=== PATIENT | female | born 1970 | race Caucasian/White ===

== ENCOUNTER 2016-12-17 12:02 | Inpatient (IN) | payer BC ==
[~2016-12-17] VITALS: Ht 170.2 cm; Wt 98.0 kg
--- NOTE | ~2016-12-17 | HP ---
ADMIT: 12/17/2016 RM/LOC: 619 [facility] MR#: [id number] [address] [address] DB [place] [address] [place] [id number] History and Physical SEX: F AGE: 46 : 1970 DATE OF SERVICE: 12/17/2016 CHIEF COMPLAINT: Abdominal pain. HISTORY OF PRESENT ILLNESS: Db is a 46-year-old patient, normally seen by Irene Quintanilla APRN at the [facility]. She presented to the [facility] Emergency Department today with a little over 24 hours of colicky and sharp epigastric abdominal pain starting at about 3 o'clock in the afternoon on 12/16/2016. She denies any known inciting event. She has had one episode of vomiting in the overnight period, and one episode of watery diarrhea. She denies any fever. She did not have any blood in her stools. She is currently on her menstrual cycle. She denies any dysuria. She has generally had a sense of anorexia and just not feeling very hungry. PAST MEDICAL HISTORY: Remarkable for; 1. Seasonal allergies. 2. Hypertension. 3. Gastroesophageal reflux disease. 4. Anxiety. 5. Obesity. MEDICATIONS: Her outpatient medications include; 1. Lisinopril 10 mg daily. 2. Omeprazole 20 mg daily. 3. Xanax 1 mg b.i.d. 4. Loratadine 10 mg daily. 5. Benadryl 25 mg at bedtime as needed to help her sleep. ALLERGIES: NO KNOWN MEDICAL ALLERGIES. SOCIAL HISTORY: She is . Denies any tobacco or drug use. She does admit 2 to 3 glasses of wine per day. FAMILY HISTORY: Noncontributory. REVIEW OF SYSTEMS: As per HPI. All others were reviewed and negative. PHYSICAL EXAMINATION: VITAL SIGNS: Blood pressure is 129/86, pulse 88, respirations 16, temp 98.5, O2 saturation is 98% on room air. GENERAL: She is awake, alert, no acute distress. Comfortable in hospital bed. HEENT: Normocephalic and atraumatic. NECK: Supple. No lymphadenopathy. No thyromegaly. HEART: Regular rate and rhythm. No murmurs, gallops, rubs. LUNGS: Clear to auscultation bilaterally. ABDOMEN: Soft. She has some mild discomfort in the epigastrium and down around the left lower quadrant region, but otherwise the remainder of her exam is fairly benign. EXTREMITIES: No cyanosis, clubbing, or edema. ADMIT: 12/17/2016 RM/LOC: 619 [facility] MR#: [id number] [address] [address] [place] [address] History and Physical SEX: F AGE: 46 : 1970 LABORATORY AND X-RAY DATA: Her CBC is remarkable only for an elevated white count of 14.4. Urine preg test is negative. UA suggestive of perhaps being mildly dehydrated 1+ protein, 3+ ketones, trace blood, and 4 hyaline casts. Blood culture is pending. Lactic acid is negative. CMP is remarkable for elevated LFTs though this is not new. Her lipase is negative at 101. Electrolytes are unremarkable. CRP is 4.5, and her sedimentation rate is 20. CT of her abdomen and pelvis, shows inflammation of wall of small bowel, mucosal thickening, some inflammatory changes extending in the adjacent fat, right-sided pleural effusion, and free fluid noticed in the pelvis, and fatty infiltration of the liver. ASSESSMENT: 1. Abdominal pain. 2. Small bowel thickening on CT. 3. Vomiting and diarrhea. 4. Dehydration. 5. Regular alcohol use. 6. Elevated liver enzymes. PLAN: Plan is going to be to admit her to a med/surg bed for observation. She has been started on IV fluids. General Surgery has been consulted and at this time does not think there are any surgical issues with her abdomen. I do suspect that perhaps she may have an infectious enteritis, and stool studies have been ordered and will be obtained as soon as she has another bowel movement. Her liver enzymes, I think are due to her chronic alcohol use. She was started on Cipro and Flagyl empirically these can be discontinued once we are fairly certain that this is not a treatable infectious diarrhea. Further management will be dependent on her clinical course. Bony Maciel MD/ soraya JOB #: [id number] CC: Bony Maciel, Attending Physician Bony Maciel, Family Physician
[2016-12-20] MEDS ORDERED: CLARITIN DPS10 MG PO (06:02)
[2016-12-20] MEDS ORDERED: ZESTRIL DPS10 MG PO (06:02)
[2016-12-20] MEDS ORDERED: PRILOSEC DPS20 MG PO (06:02)
[2016-12-20] MEDS ORDERED: BENADRYL-DPS25 MG PO (06:03)
--- NOTE | 2016-12-20 07:54 | CO ---
ADMIT: 12/17/2016 RM/LOC: 619 [facility] MR#: [id number] [address] [address] DB [place] [address] [place] [address] Consultation SEX: F AGE: 46 : 1970 DATE OF CONSULTATION: 12/17/2016 ATTENDING PHYSICIAN: Bony Maciel CONSULTING PHYSICIAN: Jose Luis Peña MD HISTORY: This is a 46-year-old female, seen in surgical consultation for Dr. Maciel with complaints of abdominal pain, diarrhea, and vomiting. Db describes these onset of symptoms yesterday. She had several episodes of loose diarrhea stool today. She has not noticed any blood in that. The pain is described as crampy and intermittent. It is located through her central abdomen. She has had no significant fever at home. She came to the ER for evaluation and had a second episode of vomiting at that point. She has never previously had these symptoms. She currently is not having any of the pain. CT scan of the abdomen performed in the ER did demonstrate evidence of small bowel and inflammation consistent with enteritis. There was also free fluid. No free air or mass or other abnormality was visualized. PAST MEDICAL HISTORY: 1. Hypertension. 2. Gastroesophageal reflux disease. CURRENT MEDICATIONS: Lisinopril. SOCIAL HISTORY: She is a nonsmoker. She does drink occasional alcohol. ALLERGIES: NO KNOWN MEDICAL ALLERGIES. FAMILY HISTORY: Significant for Crohn disease in a stepsister. REVIEW OF SYSTEMS: A 10-point review of systems is performed. The gastrointestinal symptoms mentioned above are the only positives, and the remainder of the review of systems is negative. PHYSICAL EXAMINATION: GENERAL: Db is alert, oriented, and in no acute distress. VITAL SIGNS: Her admission vital signs are stable and she is afebrile. HEENT: Sclerae appear anicteric. NECK: Supple. Trachea is midline. LUNGS: Clear bilaterally. HEART: Regular rate and rhythm. ABDOMEN: Soft without significant tenderness to palpation. There is no peritoneal sign or palpable mass. NEUROLOGIC: Cranial nerves are intact and no focal neurologic peripheral deficits. EXTREMITIES: Calves are soft bilaterally. LABORATORY STUDIES: White blood cell count is 14,000. Complete metabolic panel shows only minimal elevation of AST and ALT, and the remainder appeared ADMIT: 12/17/2016 RM/LOC: 619 [facility] MR#: [id number] [address] [address] [address] [place] [place] [address] Consultation SEX: F AGE: 46 : 1970 unremarkable. Lactic acid is normal. Erythrocyte sedimentation rate is normal. CT scan is reviewed which demonstrates the above-mentioned findings of enteritis and free fluid. IMPRESSION: Small bowel inflammatory change suspicious for infectious etiology given the acute nature. PLAN: Stool cultures are pending. She is to be started on ciprofloxacin and Flagyl IV form as appropriate coverage for enteric pathogens. Currently, no surgical indication, but we will follow along for any clinical deterioration to reassess for that need. I discussed this plan as described with Db, and she is in agreement. Jose Luis Peña MD/ ardenl JOB #: [id number] CC: Bony Maciel, Attending Physician Bony Maciel, Family Physician
--- NOTE | 2016-12-23 09:21 | ER ---
ADMIT: 12/17/2016 RM/LOC: 619 [facility] MR#: [id number] [id number] [place], [place] [address] DB [place] [address] [place] [address] Emergency Room Report SEX: F AGE: 46 : 1970 DATE: 12/17/2016 ADDENDUM: A 46-year-old female, comes in complaining of severe abdominal pain that was worse last night, but is still present. It has been diffuse in nature. She has had some nausea, and vomited twice, and also had some diarrhea with this. She states she feels a little warm, but has not taken her temperature. She has no previous surgical history on her abdomen. Physical exam showed she was diffusely tender throughout her abdomen, more noticeable in the bilateral lower quadrants. Her bowel sounds were hypoactive. There was no rebound tenderness and no guarding. I checked CBC, which showed a white count of 14.4, otherwise unremarkable. Chemistries were normal other than an AST of 57, an ALT of 87. Urinalysis showed 3+ ketones, 1+ protein. Urine was negative. CT of abdomen and pelvis showed some thickened small bowel wall with significant amount of free fluid in her abdomen and a small pleural effusion. Appendicitis was normal and I did not see any abscess or focal infection. I discussed the case with Dr. Maciel, as she normally sees Irene Quintanilla. Plan at this time will be admit the patient for further management and workup of her abdominal pain. The patient is admitted in stable condition. Thomas Boo MD/ soraya JOB #: [id number] CC: Bony Maciel MD, Attending Physician Bony Maciel MD, Family Physician
--- NOTE | 2016-12-31 08:41 | DS ---
ADMIT: 12/17/2016 RM/LOC: 619 [facility] MR#: [id number] [address] [address] [address] [place] [address] [place] [address] Discharge Summary SEX: F AGE: 46 : 1970 ADMISSION DATE: 12/17/2016 DISCHARGE DATE: 12/19/2016 ADMITTING DIAGNOSES: 1. Abdominal pain. 2. Small bowel thickening on CT. 3. Vomiting and diarrhea. 4. Dehydration. 5. Regular alcohol use. 6. Elevated liver enzymes. DISCHARGE DIAGNOSES: 1. Acute gastroenteritis, improving. 2. One positive blood culture, likely contaminant. 3. Hypertension. 4. Elevated liver enzymes. 5. Dehydration, resolved. CONSULTATION: Jose Luis Peña MD, General Surgery, consulted on 12/17/2016. PROCEDURES: None. HISTORY AND PHYSICAL EXAM: Db is a very pleasant 46-year-old patient of Irene Quintanilla at the [facility], who presented to [facility] Emergency Department on 12/17/2016 with a little over 24 hours of colicky and she described it as sharp, epigastric abdominal pain starting about 3:00 in the afternoon on 12/16/2016. She denied any known inciting event. She had had one episode of vomiting and one episode of diarrhea prior to admission. She had not had any blood in her stools or fevers. On initial exam, her vitals were stable. She was afebrile. Abdominal exam was benign. Lab and x-ray data was remarkable for an elevated white count of 14.4 and a UA suggestive of mild dehydration. CT of her abdomen and pelvis showed inflammation of the small bowel, mucosal thickening, and some inflammatory changes extending into the adjacent fat, some free fluid in the pelvis, and fatty infiltration of the liver. She was subsequently admitted to the hospital for further evaluation of this. HOSPITAL COURSE: Db's hospital course was overall unremarkable. She had minimal vomiting. She did have some diarrhea. Her stools were tested for C. diff, and cultured for O and P, all of which came back negative. Her blood culture from the ER grew out gram-positive cocci on 12/18/2016. Her blood cultures were repeated and she was started on vancomycin empirically. She had also been started on Flagyl and Cipro empirically at admission for what was presumed to be an infectious enteritis type picture. On 12/19/2016, her blood cultures two of two came back negative and her gram-positive cocci from 12/18/2016 were suggestive of a contaminant. She had not had any significant vomiting and no significant diarrhea. She was able to drink and keep down liquids. Her pain was significantly improved and a decision was made ADMIT: 12/17/2016 RM/LOC: 619 [facility] MR#: [id number] [address] [address] [place] [address] Discharge Summary SEX: F AGE: 46 : 1970 discharge her back home on 12/19/2016. DISPOSITION: She will be discharged to home. Discharge medications will include: 1. Omeprazole 20 mg daily. 2. Claritin 10 mg daily. 3. Lisinopril 10 mg daily. 4. Benadryl 25 mg at HS p.r.n. FOLLOWUP: I have asked that she follow up with her primary provider, Irene Quintanilla, sometime within the next week just to ensure that she is continuing to improve from this. Bony Maciel MD/ audelia JOB #: [id number] CC: Bony Maciel MD, Attending Physician Bony Maciel MD, Family Physician
== END 2016-12-19 09:40 | disposition home or self-care (01) | DRG 392 ==
LOC: ER 12:02 → 6PED 14:38
PROVIDERS: ADMIT Family Medicine
DX: A09 Infectious gastroenteritis and colitis, unspecified (principal); K76.0 Fatty (change of) liver, not elsewhere classified; I10 Essential (primary) hypertension; E86.0 Dehydration; K21.9 Gastro-esophageal reflux disease without esophagitis; F41.9 Anxiety disorder, unspecified; E66.9 Obesity, unspecified; Z68.33 Body mass index [BMI] 33.0-33.9, adult